=== PATIENT | female | born 1965 | race Caucasian/White ===

== ENCOUNTER 2016-10-09 15:22 | Emergency (ER) | payer BC ==
[2016-10-09 15:30] VITALS: TEMP 98; BMI 31.2
--- NOTE | 2016-10-09 15:32 | PDOC ---
Rapid Medical Evaluation Chief Complaint: Pain Time Seen by Provider: 10/09/16 15:27 Medical Evaluation: Allergies Allergy/AdvReac Type Severity Reaction Status Date / Time sulfamethoxazole Allergy Verified 10/09/16 15:24 [From Bactrim] trimethoprim [From Bactrim] Allergy Verified 10/09/16 15:24 CATS Allergy Swelling Uncoded 10/09/16 15:24 DETERGENT AdvReac Intermediate SNEEZING Uncoded 10/09/16 15:24 10/09/16 15:27 I have performed a brief in-person evaluation of this patient. The patient presents with a chief complaint of: Lower abd pain with diarrhea and headache since last night. Pt s/p endoscopy/colonoscopy 2 weeks ago and states she was dx w/ "bacteria in my stomach" and currently on amoxicillin/ clarithromycin/omeprazole Pertinent physical exam findings: Stable and appears mildly uncomfortable w/ ttp to lower abd I have ordered the following:cbc/chem/ua The patient will proceed to the ED for further evaluation.
[2016-10-09 16:37] LABS: URINE APPEARANCE CLEAR; URINE BILIRUBIN NEGATIVE (NEGATIVE); URINE BLOOD NEGATIVE (NEGATIVE); URINE COLOR LTYELLOW; URINE GLUCOSE (UA) NEGATIVE (NEGATIVE); URINE KETONE NEGATIVE (NEGATIVE); URINE LEUK ESTERASE NEGATIVE (NEGATIVE); URINE NITRITE NEGATIVE (NEGATIVE); URINE PROTEIN NEGATIVE (NEGATIVE); URINE UROBILINOGEN NEGATIVE E.U./dl (0.2-1.0)
--- NOTE | 2016-10-09 18:03 | PDOC ---
History of Present Illness - General History Source: Patient, Old Records Exam Limitations: No Limitations <Bladimir Uribefany - Last Filed: 10/09/16 18:01> - General History Source: Patient Exam Limitations: No Limitations - History of Present Illness Initial Comments: 10/09/16 18:30 The patient is a 51 year old female, with a significant past medical history of H. Pylori, who presents to the emergency department with abdominal pain, diarrhea and headache onset at 2am this morning. She reports that she had an endoscopy and colonoscopy 2 weeks ago and was placed on antibiotics. She describes her abdominal pain as localized in the suprapubic region, ranging from mild to moderate, without radiation or modifying factors. She describes her diarrhea as watery and non bloody in nature. The patient denies chest pain, shortness of breath and dizziness. Denies fever, chills, nausea, vomit, and constipation. Denies dysuria, frequency, urgency and hematuria. Allergies: Sulfa, bactrim, cats and detergent Past surgical history: None reported Social history: Occasional alcohol use (Beer). No tobacco or drug use reported <Liborio Bermudez - Last Filed: 10/09/16 18:34> - General Chief Complaint: Pain Stated Complaint: PAIN Time Seen by Provider: 10/09/16 15:27 Past History - Past Medical History GI Disorders: Yes (BACTERIAL INFECTION OF STOMACH) - Psycho/Social/Smoking Cessation Hx Anxiety: No Suicidal Ideation: No Smoking History: Never smoked Have you smoked in the past 12 months: No Information on smoking cessation initiated: No Hx Alcohol Use: No Drug/Substance Use Hx: No Substance Use Type: Alcohol Hx Substance Use Treatment: No <Uma Uribe - Last Filed: 10/09/16 18:01> <Liborio Bermudez - Last Filed: 10/09/16 18:34> - Past Medical History Allergies/Adverse Reactions: Allergies Allergy/AdvReac Type Severity Reaction Status Date / Time sulfamethoxazole Allergy Verified 10/09/16 15:24 [From Bactrim] trimethoprim [From Bactrim] Allergy Verified 10/09/16 15:24 CATS Allergy Swelling Uncoded 10/09/16 15:24 DETERGENT AdvReac Intermediate SNEEZING Uncoded 10/09/16 15:24 Home Medications: Ambulatory Orders Loratadine [Claritin -] 10 mg PO DAILY 01/08/13 Omeprazole [Prilosec (RX)] 40 mg PO DAILY 01/08/13 Ibuprofen [Motrin -] 600 mg PO TID #20 tablet 01/09/13 Review of Systems - Review of Systems Able to Perform ROS?: Yes Comments:: 10/09/16 18:30 GENERAL/CONSTITUTIONAL: No fever or chills. No weakness. HEAD, EYES, EARS, NOSE AND THROAT: No change in vision. No ear pain or discharge. No sore throat. CARDIOVASCULAR: No chest pain or shortness of breath RESPIRATORY: No cough, wheezing, or hemoptysis. GASTROINTESTINAL: (+) Abdominal pain and diarrhea. No nausea, vomiting or constipation. GENITOURINARY: No dysuria, frequency, or change in urination. MUSCULOSKELETAL: No joint or muscle swelling or pain. No neck or back pain. SKIN: No rash NEUROLOGIC: (+) Headache. No vertigo, loss of consciousness, or change in strength/sensation. ENDOCRINE: No increased thirst. No abnormal weight change HEMATOLOGIC/LYMPHATIC: No anemia, easy bleeding, or history of blood clots. ALLERGIC/IMMUNOLOGIC: No hives or skin allergy. <Liborio Bermudez - Last Filed: 10/09/16 18:34> *Physical Exam - Vital Signs Last Vital Signs Temp Pulse Resp BP Pulse Ox 98.0 F 86 18 104/73 100 10/09/16 15:26 10/09/16 15:26 10/09/16 15:26 10/09/16 15:26 10/09/16 15:26 <Uma Uribe - Last Filed: 10/09/16 18:01> - Vital Signs Last Vital Signs Temp Pulse Resp BP Pulse Ox 98.0 F 86 18 104/73 100 10/09/16 15:26 10/09/16 15:26 10/09/16 15:26 10/09/16 15:26 10/09/16 15:26 - Physical Exam Comments: 10/09/16 18:30 GENERAL: Awake, alert, and fully oriented, in no acute distress HEAD: No signs of trauma, normocephalic, atraumatic EYES: PERRLA, EOMI, sclera anicteric, conjunctiva clear ENT: Auricles normal inspection, hearing grossly normal, nares patent, oropharynx clear without exudates. Moist mucosa NECK: Normal ROM, supple, no lymphadenopathy, JVD, or masses LUNGS: No distress, speaks full sentences, clear to auscultation bilaterally HEART: Regular rate and rhythm, normal S1 and S2, no murmurs, rubs or gallops, peripheral pulses normal and equal bilaterally. ABDOMEN: (+) Tenderness in the suprapubic region and left lower quadrant. Soft, normoactive bowel sounds. No guarding, no rebound. No masses EXTREMITIES: Normal inspection, Normal range of motion, no edema. No clubbing or cyanosis. NEUROLOGICAL: Cranial nerves II through XII grossly intact. Normal speech, no focal sensorimotor deficits SKIN: Warm, Dry, normal turgor, no rashes or lesions noted. <Liborio Bermudez - Last Filed: 10/09/16 18:34> ED Treatment Course - ADDITIONAL ORDERS Additional order review: Laboratory Results 10/09/16 15:32 Urine Color Ltyellow Urine Appearance Clear Urine pH 6.0 Urine Protein Negative Urine Glucose (UA) Negative Urine Ketones Negative Urine Blood Negative Urine Nitrite Negative Urine Bilirubin Negative Urine Urobilinogen Negative Ur Leukocyte Esterase Negative Urine HCG, Qual Negative <Uma Uribe - Last Filed: 10/09/16 18:01> - ADDITIONAL ORDERS Additional order review: Laboratory Results 10/09/16 15:32 Urine Color Ltyellow Urine Appearance Clear Urine pH 6.0 Urine Protein Negative Urine Glucose (UA) Negative Urine Ketones Negative Urine Blood Negative Urine Nitrite Negative Urine Bilirubin Negative Urine Urobilinogen Negative Ur Leukocyte Esterase Negative Urine HCG, Qual Negative - Medications Given in the ED: ED Medications Discontinued Medications Generic Name Dose Route Start Last Admin Trade Name Freq PRN Reason Stop Dose Admin Morphine Sulfate 4 mg 10/09/16 18:04 10/09/16 18:24 Morphine Injection - IVPUSH 10/09/16 18:05 4 mg ONCE ONE Administration <Liborio Bermudez - Last Filed: 10/09/16 18:34> Medical Decision Making - Medical Decision Making 10/09/16 18:01 51 y/o female with recent dx of h. pylori on endoscopy presents to the ED with c /o lower abdominal pain and diarrhea since 2am this morning. DDx includes but is not limited to: colitis, diverticulosis/diverticulitis, electrolyte abnormality, toxic/metabolic derangement. Plan: 1. Labs 2. IVF for hydration 3. pain management 4. Anti-emetics 5. Observe and re-evaluate <Uma Uribe - Last Filed: 10/09/16 18:01> *DC/Admit/Observation/Transfer - Attestations Physician Attestion: 10/09/16 18:03 I, Dr. Uma Uribe, attest that the scribes documentation that appears above has been prepared under my direction and personally reviewed by me in its entirety. I confirmed that the note above accurately reflects all work, treatment, procedures, and medical decision-making performed by me. <Uma Uribe - Last Filed: 10/09/16 18:01> - Attestations Scribe Attestion: 10/09/16 18:30 Documentation prepared by Liborio Bermudez, acting as medical assistant instructor for Uma Uribe MD <Liborio Bermudez - Last Filed: 10/09/16 18:34> Diagnosis at time of Disposition: Lower abdominal pain, Diarrhea
[2016-10-09] MEDS ORDERED: morphine CARPU-JECT 4 MG/1 ML DISP.SYRIN IVPUSH ONE (18:04)
[2016-10-09] MEDS ORDERED: SODIUM CHLORIDE 1,000 ML IV STA (18:04)
[2016-10-09] MEDS ORDERED: morphine CARPU-JECT 4 MG/1 ML DISP.SYRIN ONE (18:23)
[2016-10-09 19:10] LABS: BASOPHIL 0.6 % (0-2.0); EOSINOPHIL 1.4 % (0-4.5); MCH 27.8 pg (25.7-33.7); MCHC 32.6 g/dl (32.0-36.0); MEAN CELL VOLUME 85.4 fl (80-96); NEUTROPHILS 75.8 % (42.8-82.8); PLATELET COUNT 217 K/MM3 (134-434); RDW 13.4 % (11.6-15.6); WHITE BLOOD COUNT 11.6 K/mm3 (4.0-10.0)
[2016-10-09 19:40] LABS: ALBUMIN 3.6 g/dl (3.4-5.0); ALK PHOS 111 U/L (45-117); ANION GAP 9 (8-16); BILIRUBIN,TOTAL 1.7 mg/dL (0.2-1.0); CALCIUM 9.1 mg/dL (8.5-10.1); CO2 27 mmol/L (21-32); GLUCOSE,RANDOM 82 mg/dL (74-106); SGOT/AST 60 U/L (15-37); SGPT/ALT 57 U/L (12-78); TOT PROT 7.3 g/dl (6.4-8.2)
[2016-10-09] MEDS ORDERED: metroNIDAZOLE 250 MG TABLET PO ONE (22:02)
[2016-10-09] MEDS ORDERED: LEVOFLOXACIN 500 MG TABLET (FP) PO ONE (22:02)
[2016-10-09] MEDS ORDERED: LEVOFLOXACIN 500 MG TABLET (FP) ONE (22:08)
[2016-10-09] MEDS ORDERED: metroNIDAZOLE 250 MG TABLET ONE (22:08)
--- NOTE | 2016-10-09 22:08 | PDOC ---
*Physical Exam - Vital Signs Last Vital Signs Temp Pulse Resp BP Pulse Ox 98.0 F 86 18 104/73 100 10/09/16 15:26 10/09/16 15:26 10/09/16 15:26 10/09/16 15:26 10/09/16 15:26 ED Treatment Course - LABORATORY CBC & Chemistry Diagram: 10/09/16 19:00 10/09/16 19:00 - ADDITIONAL ORDERS Additional order review: Laboratory Results 10/09/16 10/09/16 19:00 15:32 Sodium 138 Potassium 4.0 Chloride 102 Carbon Dioxide 27 Anion Gap 9 BUN 11 Creatinine 1.0 D Creat Clearance w eGFR 58.93 Random Glucose 82 Calcium 9.1 Total Bilirubin 1.7 H D AST 60 H D ALT 57 D Alkaline Phosphatase 111 D Total Protein 7.3 Albumin 3.6 Urine Color Ltyellow Urine Appearance Clear Urine pH 6.0 Ur Specific [place] 1.025 Urine Protein Negative Urine Glucose (UA) Negative Urine Ketones Negative Urine Blood Negative Urine Nitrite Negative Urine Bilirubin Negative Urine Urobilinogen Negative Ur Leukocyte Esterase Negative Urine HCG, Qual Negative 10/09/16 19:00 RBC 4.72 MCV 85.4 MCHC 32.6 RDW 13.4 MPV 9.0 Neutrophils % 75.8 Lymphocytes % 10.9 D Monocytes % 11.3 H Eosinophils % 1.4 Basophils % 0.6 - RADIOLOGY Radiology Studies Ordered: Category Date Time Status ABDOMEN & PELVIS CT W/O CONTR [CT] Stat CT Scan 10/09/16 20:06 Completed - Medications Given in the ED: ED Medications Discontinued Medications Generic Name Dose Route Start Last Admin Trade Name Freq PRN Reason Stop Dose Admin Sodium Chloride 1,000 mls @ 1,000 mls/hr 10/09/16 18:04 10/09/16 18:24 Normal Saline - IV 10/09/16 19:03 1,000 mls/hr ASDIR STA Administration Morphine Sulfate 4 mg 10/09/16 18:04 10/09/16 18:24 Morphine Injection - IVPUSH 10/09/16 18:05 4 mg ONCE ONE Administration *DC/Admit/Observation/Transfer Diagnosis at time of Disposition: Lower abdominal pain, Diarrhea Diverticulitis of intestine Qualifiers: Diverticulitis site: large intestine Diverticulitis bleeding: without bleeding Diverticulitis complication: without perforation or abscess Qualified Code(s): K57.32 - Diverticulitis of large intestine without perforation or abscess without bleeding - Discharge Dispostion Disposition: HOME Condition at time of disposition: Stable Admit: No - Prescriptions Prescriptions: Metronidazole [Flagyl] 500 mg PO BID #14 tablet Levofloxacin [Levaquin -] 500 mg PO DAILY #7 tablet - Patient Instructions Printed Discharge Instructions: DI for Diverticulitis Additional Instructions: Please follow up with your GI doctor to decide which antibiotics to take. Return if any problems
[2016-10-09 22:20] VITALS: BP 110/68; PULSE 74
== END 2016-10-09 22:20 | disposition home or self-care (01) ==
LOC: JER 15:22
PROC: 3E033NZ Introduction of Analgesics, Hypnotics, Sedatives into Peripheral Vein, Percutaneous Approach (ICD-10-PCS; principal; 2016-10-09)
DX: K57.32 Diverticulitis of large intestine without perforation or abscess without bleeding (principal); A04.8 Other specified bacterial intestinal infections
CPT/HCPCS: 36415; 74176-TC; 80053; 81003; 84703; 85025; 99282-25